=== PATIENT | female | born 1965 | race Caucasian/White ===

== ENCOUNTER 2017-01-29 10:13 | Emergency (ER) | payer OTHER ==
[~2017-01-29] VITALS: Ht 170.2 cm; Wt 113.4 kg
[2017-01-29] MEDS ORDERED: IBUPROFEN 600600 M1 PO (10:54)
[2017-01-29 11:30] VITALS: BP 163/91
== END 2017-01-29 11:31 | disposition home or self-care (01) ==
LOC: ER 10:13
DX: S86.011A Strain of right Achilles tendon, initial encounter (principal); F10.99 Alcohol use, unspecified with unspecified alcohol-induced disorder; Z88.1 Allergy status to other antibiotic agents; W22.8XXA Striking against or struck by other objects, initial encounter; Y93.02 Activity, running; Y92.096 Garden or yard of other non-institutional residence as the place of occurrence of the external cause; Y99.8 Other external cause status

== ENCOUNTER 2017-06-11 08:44 | Emergency (ER) | payer OTHER ==
[~2017-06-11] VITALS: Ht 172.7 cm; Wt 113.4 kg
[~2017-06-11 08:44] MED LIST: IBUPROFEN 600600 M1 PO
[2017-06-11] MEDS ORDERED: PERCOCET 5-3251 EACH PO (09:38)
[2017-06-11] MEDS ORDERED: LOPRESSOR25 PO (10:23)
== END 2017-06-11 10:30 | disposition home or self-care (01) ==
LOC: ER 08:44
DX: S82.241A Displaced spiral fracture of shaft of right tibia, initial encounter for closed fracture (principal); W00.0XXA Fall on same level due to ice and snow, initial encounter; Y93.89 Activity, other specified; Y92.89 Other specified places as the place of occurrence of the external cause; Y99.8 Other external cause status

== ENCOUNTER → 2018-10-09 | Outpatient (CLI) | payer OTHER ==
[~2018-10-09] MED LIST changes: +BIRTH CONTROL PILL; +LOPRESSOR25 PO; +PERCOCET 5-3251 EACH PO
== END ==
LOC: RAD 14:51
DX: Z12.31 Encounter for screening mammogram for malignant neoplasm of breast (principal)

== ENCOUNTER → 2018-10-12 | Outpatient (CLI) | payer OTHER | LOC: ULTRA 07:47 | DX: R16.0 Hepatomegaly, not elsewhere classified (principal); K80.80 Other cholelithiasis without obstruction ==

== ENCOUNTER → 2018-11-01 | Outpatient (CLI) | payer OTHER | LOC: ULTRA 09:35 | DX: N60.02 Solitary cyst of left breast (principal); R92.2 Inconclusive mammogram ==

== ENCOUNTER → 2018-11-01 | Outpatient (CLI) | payer OTHER | LOC: CAT 09:09 | DX: Z13.6 Encounter for screening for cardiovascular disorders (principal); I25.10 Atherosclerotic heart disease of native coronary artery without angina pectoris; E78.00 Pure hypercholesterolemia, unspecified ==

== ENCOUNTER → 2019-12-25 | Outpatient (CLI) | payer OTHER | LOC: BC 09:03 | PROVIDERS: ATTEND Family Medicine | DX: Z12.31 Encounter for screening mammogram for malignant neoplasm of breast (principal) ==

== ENCOUNTER → 2020-07-01 | Outpatient (CLI) | payer OTHER | LOC: ULTRA 08:49 | PROVIDERS: ATTEND Family Medicine | DX: K80.20 Calculus of gallbladder without cholecystitis without obstruction (principal); K76.0 Fatty (change of) liver, not elsewhere classified; R10.11 Right upper quadrant pain ==

== ENCOUNTER → 2020-11-25 | Outpatient (CLI) | payer OTHER ==
[~2020-11-25] VITALS: Ht 172.7 cm; Wt 118.8 kg
[~2020-11-25] MED LIST changes: +ASA81BEC PO; +FLECAINIDE ACET50 M1 PO; +PEPCID40 MG PO; +TOPROL XL25 MG PO
[2020-11-25 07:27] VITALS: BP 161/86
[2020-11-25 07:30] LABS: BASOPHILS 0.9 % (0.0-2.0); EOSINOPHILS 1.6 % (0.0-3.0); HEMATOCRIT 37.9 % (37.0-47.0); HEMOGLOBIN 12.6 gm/dL (12.0-15.0); LYMPHOCYTES 25.2 % (24.0-44.0); MCHC 33.2 g/dL (28.0-37.0); MCV 87.3 fL (80.0-100.0); MONOCYTES 9.3 % (1.0-8.0); PLATELET COUNT 234 thou/uL (150-400); RBC 4.34 mil/uL (4.20-5.00); RDW 13.8 % (10.5-14.5); WBC 6.4 thou/uL (4.0-11.0)
[2020-11-25 07:35] LABS: CALCIUM 9.3 mg/dL (8.5-10.1); CREATININE 0.7 mg/dL (0.6-1.0); POTASSIUM 4.4 mmol/L (3.5-5.1)
[2020-11-25 07:41] LABS: ALBUMIN 3.7 g/dL (3.4-5.0); TOTAL BILIRUBIN 0.4 mg/dL (0.2-1.0); TOTAL PROTEIN 7.9 g/dL (6.4-8.2)
[2020-11-25 07:42] LABS: INR 0.96; PROTIME 10.5 Seconds (10.5-12.1)
--- NOTE | 2020-12-18 10:42 | P ---
[facility] [place] [address] PROCEDURE REPORT Name: GARRY GAGNON [id number] Admission: 11/25/20 Attend Phys: Yohan Brown MD Discharge: Date of : 69 Report #: [id number] THIS REPORT FOR: cc: Maria Esther Denise MD, Aimee B. MD Couchonnal,Yohan Wilcox MD ~ DATE OF SERVICE: 11/25/2020 SUPRAVENTRICULAR TACHYCARDIA ABLATION PROCEDURES PERFORMED: 1. SVT ablation, CPT code 41819. 2. EP with left atrial pacing recording, CPT code 00481. 3. Program stimulation pacing after IV drug infusion, CPT code 51936. 4. 3D mapping, CPT code 98696. HISTORY: This is a patient with recurrent supraventricular tachycardia, here for ablation. ANESTHESIA: The patient underwent MAC anesthesia with no anesthesia related complications. DESCRIPTION OF PROCEDURE: The patient was brought to the EP laboratory in a fasting and sedated state, prepped and draped in a standard fashion, obtained access to the right femoral vein x 3, placing an 8 and two 6, and a 7-German short sheath using the modified Seldinger technique. Under fluoroscopy, 3 quadripolar catheters were placed at the HRA, His and RV positions and a decapolar catheter was placed easily in the coronary sinus for left atrial pacing and recording. At baseline, the patient was in sinus rhythm, sinus cycle length of 656 milliseconds, NM interval 180 milliseconds, QRS duration 96 milliseconds, QT interval 380 milliseconds, AH interval 120 milliseconds, HV interval 45 milliseconds. Atrial burst pacing was performed and AV block was noted at 360 milliseconds. Single atrial extrastimuli were delivered at 330 milliseconds at a [address] cycle length. 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 Attempts to entrain this resulted in termination. Ventricular pacing was performed and VA block was noted at 430 milliseconds and VA conduction was both midline and decremental. Although, I could induce tachycardia, I could not entrain the arrhythmia. Isoproterenol infusion was initiated at 1 mcg per minute. AV block was noted to be 290 milliseconds. Ventricular ERP was noted at 180 milliseconds at a [address] cycle length and atrial ERP was noted 200 milliseconds at a [address] cycle length. With atrial burst pacing again, the patient went into SVT. Now the tachycardia cycle length was 360 milliseconds [facility] [address] [place] [address] PROCEDURE REPORT Name: GARRY GAGNON Room #: REG [facility]#: [id number] Admission: 11/25/20 Attend Phys: Yohan Brown MD Discharge: Date of : 69 Report #: [id number] with a septal VA time of 35 milliseconds and I could easily and reproducibly entrain this and demonstrate a VAHV response. 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 A 3D MAPPING AND ABLATION: Next, a 4 mm Biosense Melvin ablation catheter was placed into the right atrium via an SR0 sheath. A 3D geometry of the right atrium was created. Ablation was then performed at 50 steinberg and 55 degrees and a total of 7 ablation lesions were performed. The last several lesions had nice slow junctionals with no compromised AV krishna conduction. POST-ABLATION TESTING: Isoproterenol was reinitiated at 1 mcg per minute. Aggressive atrial pacing and ventricular pacing maneuvers were performed and I could no longer induce SVT. AV block was noted at 330 milliseconds. Atrial ERP was noted at 230 milliseconds at a [address] cycle length. VA block was noted at 460 milliseconds and ventricular ERP was noted at 410 milliseconds at a [address] cycle length. As such, the procedure was concluded. Catheters and sheaths were pulled and hemostasis was obtained. CONCLUSION: 1. 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 2. Normal SA krishna function. 3. Normal AV krishna function. 4. Normal His-Purkinje function. 5. No other inducible arrhythmias on or off isoproterenol. <ELECTRONICALLY SIGNED> By: Yohan Brown MD 12/18/20 [id number] Yohan Brown MD /nt
== END | disposition home or self-care (01) ==
LOC: CATH 06:28
PROVIDERS: ATTEND Internal Medicine Cardiovascular Disease
DX: I47.1 Supraventricular tachycardia (principal); I49.9 Cardiac arrhythmia, unspecified; K21.9 Gastro-esophageal reflux disease without esophagitis; Z98.890 Other specified postprocedural states; Z79.899 Other long term (current) drug therapy; Z82.49 Family history of ischemic heart disease and other diseases of the circulatory system; Z90.49 Acquired absence of other specified parts of digestive tract; Z88.8 Allergy status to other drugs, medicaments and biological substances
CPT/HCPCS: 62110; 62900; 70005

== ENCOUNTER → 2021-01-13 | Outpatient (CLI) | payer OTHER ==
[~2021-01-13] MED LIST changes: +VITAMIN C1000 MG PO; +VITAMIN D350 MC3 PO; +ZINC50 MG PO
== END ==
LOC: LAB 13:33
PROVIDERS: ATTEND Student in an Organized Health Care Education/Training Program
DX: Z01.812 Encounter for preprocedural laboratory examination (principal); Z20.822 Contact with and (suspected) exposure to COVID-19

== ENCOUNTER → 2021-01-15 | Outpatient (CLI) | payer OTHER ==
[~2021-01-15] VITALS: Ht 172.7 cm; Wt 117.9 kg
--- NOTE | 2021-01-17 09:23 | P ---
[facility] [place] [address] PROCEDURE REPORT Name: GARRY GAGNON Room #: REG [facility] Telma#: [id number] Admission: 01/15/21 Attend Phys: Rj Win Discharge: Date of : 69 Report #: [id number] THIS REPORT FOR: cc: Maria Esther Denise MD, Aimee B. MD McElhinney, Christian C. MD ~ cc: Maria Esther Denise MD DATE OF SERVICE: 01/15/2021 PROCEDURE PERFORMED: Colonoscopy. HISTORY OF PRESENT ILLNESS: The patient is a 55-year-old female here for screening colonoscopy, family history of colon cancer in her mother and her grandmother. The patient denies any symptoms. DESCRIPTION OF PROCEDURE: The risks and benefits of the procedure were explained to the patient, those risks including but not limited to bleeding, perforation and the risk of sedation. She understood these risks and gave informed consent. Sedation was given using propofol per anesthesia. Next, a digital rectal exam was initially performed, which was normal. Next, using a standard Olympus colonoscope, the scope was placed in the patient's anus and advanced under direct vision to the cecum. The overall prep was excellent. The cecum and the ileocecal valve were normal in appearance. Ascending, transverse, descending and sigmoid colon were all normal. The rectal mucosa was normal. On retroflexion, no abnormalities were noted. The scope was then withdrawn and the procedure terminated. The patient tolerated the procedure well. IMPRESSION: Normal colonoscopy. RECOMMENDATIONS: Repeat colonoscopy in 5 years. Thank you for allowing me to participate in her care. <ELECTRONICALLY SIGNED> By: Rj Mclean MD 01/17/21 0923 [id number] Rj Mclean MD /nt
== END | disposition home or self-care (01) ==
LOC: GI 08:41
PROVIDERS: ATTEND Specialist
DX: Z12.11 Encounter for screening for malignant neoplasm of colon (principal); Z80.0 Family history of malignant neoplasm of digestive organs; K21.9 Gastro-esophageal reflux disease without esophagitis; Z98.890 Other specified postprocedural states; Z79.899 Other long term (current) drug therapy; Z88.8 Allergy status to other drugs, medicaments and biological substances; Z87.19 Personal history of other diseases of the digestive system
CPT/HCPCS: 62110; 62900